=== PATIENT | female | born 1950 | race Caucasian/White ===

== ENCOUNTER 2019-05-02 15:50 | Inpatient (IN) | payer MEDICARE, OTHER ==
[~2019-05-02] VITALS: Ht 162.6 cm; Wt 82.3 kg
[~2019-05-02 15:50] MED LIST: DSS100 PO; HYDR25TA PO; LABE100T8 PO; LAMO25 PO; LEVO25TA9 PO; LORA10TA7 PO; LORA1TAB3 PO; OMEP20 PO; RIVA20TA PO; SERT100T12 PO; TRAZ-252 PO
[2019-05-02] MEDS ORDERED: METH10TA4 PO (16:02)
[2019-05-02] MEDS ORDERED: AMLO5TAB9 PO (16:02)
[2019-05-02] MEDS ORDERED: RIBO400T PO (16:02)
[2019-05-02] MEDS ORDERED: ATOR20TA86 PO (16:02)
[2019-05-02] MEDS ORDERED: CHOL100018 PO (16:02)
[2019-05-02] MEDS ORDERED: DULO60CA44 PO (16:02)
[2019-05-02] MEDS ORDERED: LOSA50TA64 PO (16:02)
[2019-05-02] MEDS ORDERED: GABA-531 PO (16:02)
[2019-05-02] MEDS ORDERED: MAGN250T2 PO (16:02)
[2019-05-02 17:27] LABS: BASOPHILS % (AUTO) 1.4 % (0.0-2.0); EOSINOPHILS % (AUTO) 0.7 % (1.0-6.0); HEMATOCRIT 42.6 % (36-46); HEMOGLOBIN 13.4 g/dL (12.0-16.0); LYMPHOCYTES # (AUTO) 2.4 K/uL (1.0-4.8); LYMPHOCYTES % (AUTO) 22.1 % (22.0-44.0); MEAN CORPUSCULAR HEMOGLOBIN 27.5 pg (26.0-34.0); MEAN CORPUSCULAR HGB CONC 31.6 G/dL (31.0-37.0); MEAN CORPUSCULAR VOLUME 87 fL (80-100); NEUTROPHILS # (AUTO) 7.4 K/uL (1.8-7.7); NEUTROPHILS % (AUTO) 66.8 % (40.0-70.0); PLATELET COUNT (AUTO) 320 K/uL (150-450); RED BLOOD CELL COUNT(AUTO) 4.88 MIL/uL (4.00-5.20); RED CELL DISTRIBUTION WIDTH 14.5 % (11.5-14.5)
[2019-05-02 17:37] LABS: CALCIUM, TOTAL 9.9 mg/dL (8.8-10.5); CREATININE 1.19 mg/dL (0.60-1.30); POTASSIUM 4.1 mmol/L (3.5-5.1)
[2019-05-02 17:39] LABS: ALBUMIN 3.9 g/dL (3.4-5.0); BILIRUBIN,TOTAL 0.3 mg/dL (0.1-1.0)
[2019-05-02 17:40] LABS: PROTHROMBIN TIME 10.1 SEC (9.4-11.6)
[2019-05-02] MEDS ORDERED: ASPIRIN 81 MG CHEWABLE TABLET PO ONE ×2 (18:00→18:15)
[2019-05-02] MEDS ORDERED: LORazepam 1 MG TABLET PO ONE (18:15)
[2019-05-02] MEDS ORDERED: HEPARIN SODIUM 25000 UNITS/D5W 250 ML IV PRN (18:29)
[2019-05-02] MEDS ORDERED: METOPROLOL TARTRATE 50 MG TABLET PO ONE (18:30)
[2019-05-02] MEDS ORDERED: HEPARIN SODIUM,PORCINE 5,000 UNITS/ML VIAL IVP ONE ×2 (18:30→18:45)
[2019-05-02] MEDS ORDERED: ATORVASTATIN CALCIUM 40 MG TABLET PO ONE (18:30)
[2019-05-02] MEDS ORDERED: HEPARIN SODIUM,PORCINE 5,000 UNITS/ML VIAL IVP PRN ×2 (18:30)
[2019-05-02 18:45] LABS: D-DIMER 2.39 mg/L FEU (0.00-0.50)
[2019-05-02 18:57] LABS: THYROID STIMULATING HORMONE 1.35 uIU/mL (0.36-3.74)
[2019-05-02] MEDS ORDERED: MAGNESIUM HYDROXIDE SUSPENSION 30 ML UDCUP PO PRN (19:00)
[2019-05-02] MEDS: ATORVASTATIN CALCIUM 40 MG TABLET PO SCH (19:00)
[2019-05-02] MEDS ORDERED: METOPROLOL TARTRATE 25 MG TABLET PO SCH (21:00)
[2019-05-02 22:58] LABS: APPEARANCE,URINE CLEAR (CLEAR); GLUCOSE, URINE (UA) NEGATIVE (NEGATIVE); KETONES,URINE NEGATIVE (NEGATIVE); LEUKOCYTE ESTERASE ,URINE NEGATIVE (NEGATIVE); NITRATE,URINE NEGATIVE (NEGATIVE); OCCULT BLOOD,URINE NEGATIVE (NEGATIVE); PROTEIN,URINE TRACE (NEGATIVE)
[2019-05-02 23:06] LABS: BILIRUBIN,URINE PRELIM. POSITIVE (NEGATIVE)
[2019-05-02 23:11] LABS: AMPHET/METH SCREEN,URINE NEGATIVE (NEGATIVE); BARBITURATE SCREEN, URINE NEGATIVE (NEGATIVE); BENZODIAZEPINES SCREEN,URINE NEGATIVE (NEGATIVE); CANNABINOID SCREEN,URINE POSITIVE (NEGATIVE); COCAINE SCREEN,URINE NEGATIVE (NEGATIVE); METHADONE SCREEN, URINE NEGATIVE (NEGATIVE); OPIATE SCREEN,URINE NEGATIVE (NEGATIVE); PHENCYCLIDINE SCREEN,URINE NEGATIVE (NEGATIVE)
[2019-05-02 23:15] LABS: BACTERIA,URINE None Seen /HPF (None Seen); RBC,URINE 0-2 /HPF (0-2); WBC,URINE 0-2 /HPF (0-5)
[2019-05-02 23:16] LABS: SQUAMOUS EPITHELIAL CELL,UR Moderate /LPF (None Seen)
[2019-05-03] VITALS (20 sets, daily range): BP systolic 120–200; BP diastolic 39–93
[2019-05-03] MEDS ORDERED: LORazepam 1 MG TABLET PO ONE (01:00)
[2019-05-03] MEDS: ACETAMINOPHEN 325 MG TABLET PO PRN ×4 (01:16→22:54)
[2019-05-03 06:53] LABS: BASOPHILS % (AUTO) 1.3 % (0.0-2.0); HEMATOCRIT 38.6 % (36-46); HEMOGLOBIN 12.5 g/dL (12.0-16.0); LYMPHOCYTES # (AUTO) 3.2 K/uL (1.0-4.8); LYMPHOCYTES % (AUTO) 39.9 % (22.0-44.0); MEAN CORPUSCULAR HEMOGLOBIN 28.1 pg (26.0-34.0); MEAN CORPUSCULAR HGB CONC 32.4 G/dL (31.0-37.0); MEAN CORPUSCULAR VOLUME 87 fL (80-100); MONOCYTES # (AUTO) 0.8 K/uL (0.1-1.0); MONOCYTES % (AUTO) 10.3 % (2.0-9.0); NEUTROPHILS # (AUTO) 3.7 K/uL (1.8-7.7); NEUTROPHILS % (AUTO) 46.5 % (40.0-70.0); PLATELET COUNT (AUTO) 256 K/uL (150-450); RED BLOOD CELL COUNT(AUTO) 4.44 MIL/uL (4.00-5.20); RED CELL DISTRIBUTION WIDTH 14.3 % (11.5-14.5)
[2019-05-03] MEDS: LORazepam 2 MG/ML VIAL IVP PRN ×4 (07:00→22:22)
[2019-05-03] MEDS: ATORVASTATIN CALCIUM 40 MG TABLET PO SCH (09:00)
[2019-05-03] MEDS ORDERED: METOPROLOL TARTRATE 25 MG TABLET PO SCH (09:00)
[2019-05-03] MEDS ORDERED: ASPIRIN 325 MG TABLET PO ONE (10:45)
[2019-05-03] MEDS ORDERED: TICAGRELOR 90 MG TABLET PO ONE (10:45)
[2019-05-03] MEDS ORDERED: LIDOCAINE/PF 1% 30 ML VIAL ONE (12:45)
[2019-05-03] MEDS ORDERED: HEPARIN SODIUM 1000 UNITS/NS 1,000 ML ONE (12:46)
[2019-05-03] MEDS ORDERED: SODIUM BICARBONATE 50 MEQ/50 ML VIAL ONE (12:46)
[2019-05-03] MEDS ORDERED: IOHEXOL 300 MG/ML 150 ML VIAL ONE (12:46)
[2019-05-03] MEDS ORDERED: FentaNYL CITRATE-PF 100 MCG/2 ML VIAL ONE (13:31)
[2019-05-03] MEDS ORDERED: DiphenhydrAMINE HCL 50 MG/ML VIAL ONE (13:31)
[2019-05-03] MEDS ORDERED: DILTIAZEM HCL 5 MG/ML 5 ML VIAL IVP ONE ×2 (13:54→14:00)
[2019-05-03] MEDS ORDERED: FentaNYL CITRATE-PF 100 MCG/2 ML VIAL IVP ONE ×2 (14:00)
[2019-05-03] MEDS ORDERED: DiphenhydrAMINE HCL 50 MG/ML VIAL IVP ONE (14:00)
[2019-05-03] MEDS: LISINOPRIL 20 MG TABLET PO SCH (14:52)
[2019-05-03] MEDS: FAMOTIDINE 20 MG TABLET PO SCH (14:52)
[2019-05-03] MEDS: METOPROLOL SUCCINATE 50 MG ER TABLET PO SCH (14:54)
[2019-05-04] VITALS (11 sets, daily range): BP systolic 118–149; BP diastolic 59–85
[2019-05-04] MEDS: LORazepam 2 MG/ML VIAL IVP PRN ×3 (05:15→18:01)
[2019-05-04] MEDS: ACETAMINOPHEN 325 MG TABLET PO PRN ×4 (06:25→18:07)
[2019-05-04] MEDS: ATORVASTATIN CALCIUM 40 MG TABLET PO SCH (08:44)
[2019-05-04] MEDS: LISINOPRIL 20 MG TABLET PO SCH (08:44)
[2019-05-04] MEDS: FAMOTIDINE 20 MG TABLET PO SCH (08:44)
[2019-05-04] MEDS: METOPROLOL SUCCINATE 50 MG ER TABLET PO SCH (09:59)
[2019-05-04] MEDS: MORPHINE SULFATE 2 MG/ML SYRINGE IVP PRN ×2 (15:30→20:37)
[2019-05-04] MEDS: ASPIRIN 81 MG EC TABLET PO SCH (15:30)
[2019-05-05] MEDS: LORazepam 2 MG/ML VIAL IVP PRN ×4 (00:45→15:04)
[2019-05-05] MEDS: ACETAMINOPHEN 325 MG TABLET PO PRN ×4 (01:14→20:22)
[2019-05-05 03:33] VITALS: BP 131/65
[2019-05-05 04:04] VITALS: BP 131/65
[2019-05-05 07:39] VITALS: BP 157/74
[2019-05-05 07:49] LABS: BASOPHILS % (AUTO) 0.9 % (0.0-2.0); EOSINOPHILS % (AUTO) 2.6 % (1.0-6.0); HEMOGLOBIN 12.2 g/dL (12.0-16.0); LYMPHOCYTES # (AUTO) 2.3 K/uL (1.0-4.8); LYMPHOCYTES % (AUTO) 30.1 % (22.0-44.0); MEAN CORPUSCULAR HEMOGLOBIN 28.2 pg (26.0-34.0); MEAN CORPUSCULAR HGB CONC 32.1 G/dL (31.0-37.0); MEAN CORPUSCULAR VOLUME 88 fL (80-100); MONOCYTES # (AUTO) 0.9 K/uL (0.1-1.0); NEUTROPHILS # (AUTO) 4.3 K/uL (1.8-7.7); NEUTROPHILS % (AUTO) 55.4 % (40.0-70.0); PLATELET COUNT (AUTO) 244 K/uL (150-450); RED BLOOD CELL COUNT(AUTO) 4.32 MIL/uL (4.00-5.20); RED CELL DISTRIBUTION WIDTH 14.7 % (11.5-14.5)
[2019-05-05 07:59] LABS: ANION GAP 9 mmol/L (8-16); CALCIUM, TOTAL 9.6 mg/dL (8.8-10.5); CARBON DIOXIDE 26 mmol/L (22-29); CHLORIDE 105 mmol/L (98-107); CREATININE 0.86 mg/dL (0.60-1.30); GLOMERULAR FILTR. RATE CALC > 60 mL/min (>60); GLUCOSE,RANDOM 101 mg/dL (70-110); POTASSIUM 3.6 mmol/L (3.5-5.1); SODIUM SERUM 140 mmol/L (136-145); UREA NITROGEN, BLOOD 11 mg/dL (7-18)
[2019-05-05] MEDS: FAMOTIDINE 20 MG TABLET PO SCH (08:43)
[2019-05-05] MEDS: LISINOPRIL 20 MG TABLET PO SCH (08:43)
[2019-05-05] MEDS: ASPIRIN 81 MG EC TABLET PO SCH (08:43)
[2019-05-05] MEDS: ATORVASTATIN CALCIUM 40 MG TABLET PO SCH (08:43)
[2019-05-05] MEDS: METOPROLOL SUCCINATE 50 MG ER TABLET PO SCH (08:43)
[2019-05-05] MEDS: MORPHINE SULFATE 2 MG/ML SYRINGE IVP PRN ×3 (08:44→22:13)
[2019-05-05 15:03] VITALS: BP 133/78
[2019-05-05] MEDS: DULoxetine HCL 60 MG CAPSULE PO SCH (17:27)
[2019-05-05 20:01] VITALS: BP 142/73
[2019-05-05] MEDS: LORazepam 1 MG TABLET PO SCH (20:20)
[2019-05-05 23:52] VITALS: BP 135/75
[2019-05-06 05:08] VITALS: BP 134/70
[2019-05-06] MEDS: LORazepam 2 MG/ML VIAL IVP PRN ×2 (05:19→15:46)
[2019-05-06] MEDS: ACETAMINOPHEN 325 MG TABLET PO PRN ×2 (05:19→19:33)
[2019-05-06 06:26] LABS: BASOPHILS % (AUTO) 0.8 % (0.0-2.0); EOSINOPHILS % (AUTO) 2.2 % (1.0-6.0); HEMATOCRIT 38.8 % (36-46); HEMOGLOBIN 12.5 g/dL (12.0-16.0); LYMPHOCYTES # (AUTO) 2.5 K/uL (1.0-4.8); LYMPHOCYTES % (AUTO) 33.7 % (22.0-44.0); MEAN CORPUSCULAR HEMOGLOBIN 28.2 pg (26.0-34.0); MEAN CORPUSCULAR HGB CONC 32.2 G/dL (31.0-37.0); MEAN CORPUSCULAR VOLUME 88 fL (80-100); MONOCYTES # (AUTO) 0.9 K/uL (0.1-1.0); MONOCYTES % (AUTO) 12.1 % (2.0-9.0); NEUTROPHILS # (AUTO) 3.9 K/uL (1.8-7.7); NEUTROPHILS % (AUTO) 51.2 % (40.0-70.0); PLATELET COUNT (AUTO) 242 K/uL (150-450); RED BLOOD CELL COUNT(AUTO) 4.42 MIL/uL (4.00-5.20); RED CELL DISTRIBUTION WIDTH 14.3 % (11.5-14.5)
[2019-05-06 08:15] VITALS: BP 126/71
[2019-05-06] MEDS: LISINOPRIL 20 MG TABLET PO SCH (08:25)
[2019-05-06] MEDS: ASPIRIN 81 MG EC TABLET PO SCH (08:25)
[2019-05-06] MEDS: DULoxetine HCL 60 MG CAPSULE PO SCH (08:25)
[2019-05-06] MEDS: ATORVASTATIN CALCIUM 40 MG TABLET PO SCH (08:25)
[2019-05-06] MEDS: METOPROLOL SUCCINATE 50 MG ER TABLET PO SCH (08:25)
[2019-05-06] MEDS: LORazepam 1 MG TABLET PO SCH ×2 (08:25→20:05)
[2019-05-06] MEDS: FAMOTIDINE 20 MG TABLET PO SCH (08:25)
[2019-05-06 11:53] VITALS: BP 142/80
[2019-05-06] MEDS: MORPHINE SULFATE 2 MG/ML SYRINGE IVP PRN ×2 (13:26→23:59)
[2019-05-06 15:31] VITALS: BP 117/66
[2019-05-06 19:18] VITALS: BP 117/58
[2019-05-06 23:57] VITALS: BP 126/75
[2019-05-07 04:40] VITALS: BP 152/86
[2019-05-07] MEDS: LORazepam 2 MG/ML VIAL IVP PRN ×2 (06:28→14:14)
[2019-05-07 07:48] VITALS: BP 130/72
[2019-05-07] MEDS: MORPHINE SULFATE 2 MG/ML SYRINGE IVP PRN ×2 (08:59→18:47)
[2019-05-07] MEDS: LORazepam 1 MG TABLET PO SCH ×2 (08:59→21:10)
[2019-05-07] MEDS: METOPROLOL SUCCINATE 50 MG ER TABLET PO SCH (11:50)
[2019-05-07] MEDS: ATORVASTATIN CALCIUM 40 MG TABLET PO SCH (11:51)
[2019-05-07] MEDS: FAMOTIDINE 20 MG TABLET PO SCH (11:51)
[2019-05-07] MEDS: ASPIRIN 81 MG EC TABLET PO SCH (11:51)
[2019-05-07] MEDS: DULoxetine HCL 60 MG CAPSULE PO SCH (11:51)
[2019-05-07 11:52] VITALS: BP 120/68
[2019-05-07] MEDS: LISINOPRIL 20 MG TABLET PO SCH (11:52)
[2019-05-07 15:21] VITALS: BP 126/78
[2019-05-07] MEDS: ACETAMINOPHEN 325 MG TABLET PO PRN (16:47)
[2019-05-07 20:00] VITALS: BP 133/69
[2019-05-07 23:40] VITALS: BP 129/71
[2019-05-08] MEDS: MORPHINE SULFATE 2 MG/ML SYRINGE IVP PRN (03:35)
[2019-05-08 05:01] VITALS: BP 136/71
[2019-05-08] MEDS: ACETAMINOPHEN 325 MG TABLET PO PRN ×2 (06:44→16:32)
[2019-05-08 08:16] VITALS: BP 121/65
[2019-05-08] MEDS: ASPIRIN 81 MG EC TABLET PO SCH (08:28)
[2019-05-08] MEDS: DULoxetine HCL 60 MG CAPSULE PO SCH (08:28)
[2019-05-08] MEDS: LISINOPRIL 20 MG TABLET PO SCH (08:28)
[2019-05-08] MEDS: LORazepam 1 MG TABLET PO SCH (08:29)
[2019-05-08] MEDS: FAMOTIDINE 20 MG TABLET PO SCH (08:29)
[2019-05-08] MEDS: ATORVASTATIN CALCIUM 40 MG TABLET PO SCH (08:29)
[2019-05-08] MEDS ORDERED: METOPROLOL SUCCINATE 25 MG ER TABLET PO SCH (11:30)
[2019-05-08] MEDS: LORazepam 0.5 MG TABLET PO PRN ×2 (12:08→16:32)
[2019-05-08 12:09] VITALS: BP 144/53
[2019-05-08 16:03] VITALS: BP 150/83
[2019-05-08] MEDS ORDERED: ASPI81 PO (17:23)
[2019-05-08] MEDS ORDERED: METO25XL PO (17:23)
[2019-05-08] MEDS ORDERED: LORA1TAB3 PO (17:25)
[2019-05-09] MEDS ORDERED: METOPROLOL SUCCINATE 50 MG ER TABLET PO SCH (09:00)
== END 2019-05-08 18:55 | DRG 282 ==
LOC: EMS 15:51 → UNDOADMIN 18:19 → 4E 18:19 → ICU 05-03 06:00 → 5S 05-03 22:10
PROVIDERS: ADMIT Internal Medicine; ATTEND Internal Medicine
PROC: 4A023N7 Measurement of Cardiac Sampling and Pressure, Left Heart, Percutaneous Approach (ICD-10-PCS; principal; 2019-05-03)
PROC: B2111ZZ Fluoroscopy of Multiple Coronary Arteries using Low Osmolar Contrast (ICD-10-PCS; 2019-05-03)
PROC: B2161ZZ Fluoroscopy of Right and Left Heart using Low Osmolar Contrast (ICD-10-PCS; 2019-05-03)
DX: I21.4 Non-ST elevation (NSTEMI) myocardial infarction (principal); E66.9 Obesity, unspecified; F43.10 Post-traumatic stress disorder, unspecified; E03.9 Hypothyroidism, unspecified; E78.00 Pure hypercholesterolemia, unspecified; E78.5 Hyperlipidemia, unspecified; F41.1 Generalized anxiety disorder; I25.10 Atherosclerotic heart disease of native coronary artery without angina pectoris; F32.9 Major depressive disorder, single episode, unspecified; I10 Essential (primary) hypertension; Z88.2 Allergy status to sulfonamides; Z88.1 Allergy status to other antibiotic agents; Z88.8 Allergy status to other drugs, medicaments and biological substances; Z91.040 Latex allergy status; Z91.048 Other nonmedicinal substance allergy status; Z79.82 Long term (current) use of aspirin; Z79.899 Other long term (current) drug therapy; Z68.31 Body mass index [BMI] 31.0-31.9, adult; I25.2 Old myocardial infarction; Z86.711 Personal history of pulmonary embolism; Z79.890 Hormone replacement therapy
CPT/HCPCS: 84443; 85379; 87081; 93005; 93306; 97110; 97116; 97162; 97530; 99291; G0378; J1200; J1644; J2060; J2270; J3010; J3490; Q9967